=== PATIENT | female | born 1990 | race Two or more races ===

== ENCOUNTER 2024-05-28 22:47 | Outpatient (CLI) | payer OTHER ==
[~2024-05-28] VITALS: Ht 157.5 cm; Wt 70.8 kg
[2024-05-28 22:24] VITALS: BP 117/71
[2024-05-28] MEDS ORDERED: IRON236 MG PO (22:51)
[2024-05-28] MEDS ORDERED: CHILDREN'S ASPI81 MG PO (22:51)
[2024-05-28] MEDS ORDERED: PRENATAL TABLE1 EAC4 PO (22:52)
[2024-05-28] MEDS ORDERED: hydrOXYzine PAMOATE 25 MG CAPSULE PO PRN (23:00)
[2024-05-28] MEDS ORDERED: RINGERS SOLUTION,LACTATED 1,000 ML IV SCH (23:00)
[2024-05-28 23:47] LABS: HEMATOCRIT 33.5 % (36.0-45.00); HEMOGLOBIN 11.3 g/dL (12.0-15.00); MEAN CELL VOLUME 88.5 fL (80.00-100.00); MEAN CORPUSCULAR HEMOGLOBIN 29.8 pg (27.00-32.0); MEAN CORPUSCULAR HGB CONC 33.7 g/dl (32.0-36.0); PLATELET COUNT 149 K/uL (150-450); RED BLOOD COUNT 3.79 M/uL (4.00-6.00); RED CELL DISTRIBUTION WIDTH 13.9 % (11.5-14.5)
[2024-05-28 23:48] LABS: PH,URINE 6.5 (5.0-8.0); URINE APPEARANCE Clear; URINE BILIRRUBIN Negative (NEGATIVE); URINE BLOOD Negative; URINE COLOR Yellow; URINE GLUCOSE Negative (NEGATIVE); URINE KETONE Negative (NEGATIVE); URINE LEUKOCYTE Small; URINE NITRATE Negative; URINE PROTEIN Negative (NEGATIVE); URINE UROBILINOGEN 0.2 E.U./dl
[2024-05-28 23:52] LABS: URINE BACTERIA 2674.8 uL (0.0-1933); URINE EPITHELIAL CELLS 21.7 uL (0.0-38.8); URINE RBC 8.3 uL (0.0-20.8); URINE WBC 67.8 uL (0.0-23.2)
[2024-05-29] VITALS: BP 100/55
[2024-05-29 00:07] LABS: BILIRUBIN TOTAL 0.4 mg/dL (0.3-1.2); CALCIUM 9.8 mg/dL (8.5-10.1); CREATININE SERUM 0.52 mg/dL (0.55-1.02); GFR 135.8; GLOBULINA 3.7 G/DL (2.4-3.5); POTASSIUM 3.77 mEq/L (3.5-5.1); TOTAL PROTEIN 6.7 gm/dL (6.4-8.2)
[2024-05-29 05:05] VITALS: BP 92/55
[2024-05-29 06:19] VITALS: BP 95/64; O2SAT 98
[2024-05-29 13:10] VITALS: BP 111/70; O2SAT 98
[2024-05-29 15:18] VITALS: BP 94/62
== END 2024-05-29 16:41 | disposition home or self-care (01) ==
LOC: OBS/DEL 22:47
PROVIDERS: Obstetrics & Gynecology; ATTEND General Practice
DX: O47.03 False labor before 37 completed weeks of gestation, third trimester (principal); O23.43 Unspecified infection of urinary tract in pregnancy, third trimester; N39.0 Urinary tract infection, site not specified; Z3A.34 34 weeks gestation of pregnancy; O26.849 Uterine size-date discrepancy, unspecified trimester; O36.8199 Decreased fetal movements, unspecified trimester, other fetus

== ENCOUNTER 2024-06-27 14:00 | Inpatient (IN) | payer OTHER ==
[~2024-06-27] VITALS: Ht 157.5 cm; Wt 3.2 kg
[~2024-06-27 14:00] MED LIST: CHILDREN'S ASPI81 MG PO; IRON236 MG PO; PRENATAL TABLE1 EAC4 PO
[2024-07-04] MEDS ORDERED: MORPHINE SULFATE 4 MG/ML VIAL IV ONE ×2 (11:00→22:45)
[2024-07-04] MEDS ORDERED: OXYTOCIN 500 ML IV SCH (11:00)
[2024-07-04 11:20] VITALS: BP 115/77
[2024-07-04 12:20] VITALS: BP 116/83
[2024-07-04] MEDS ORDERED: FAMOTIDINE/PF 20 MG/2 ML VIAL IV SCH (14:02)
[2024-07-04] MEDS ORDERED: ONDANSETRON HCL 2 MG/ML VIAL IV PRN (14:15)
[2024-07-04] MEDS ORDERED: RINGERS SOLUTION,LACTATED 1,000 ML IV SCH ×2 (15:15→22:15)
[2024-07-04 15:56] VITALS: BP 105/70
[2024-07-04 19:59] VITALS: BP 119/70
[2024-07-04] MEDS ORDERED: ERYTHROMYCIN BASE OPHT 1GM EACH TUBE OP ONE (20:00)
[2024-07-04] MEDS ORDERED: OXYTOCIN 10 UNITS/ML VIAL IV ONE (20:00)
[2024-07-04] MEDS ORDERED: CEFAZOLIN SODIUM 1,000 MG VIAL IV ONE (20:00)
[2024-07-04] MEDS ORDERED: OXYTOCIN 1,000 ML IV SCH (22:15)
[2024-07-04] MEDS ORDERED: CHLORHEXIDINE GLUCONATE 120 ML BOTTLE TOP SCH (22:15)
[2024-07-04] MEDS ORDERED: MEPERIDINE HCL/PF 25 MG/ML VIAL IV PRN (22:15)
[2024-07-04] MEDS ORDERED: KETOROLAC TROMETHAMINE 30 MG VIAL IV SCH (22:15)
[2024-07-05 02:33] VITALS: BP 133/75
[2024-07-05 03:21] LABS: HEMATOCRIT 34.7 % (36.0-45.00); HEMOGLOBIN 11.7 g/dL (12.0-15.00); MEAN CELL VOLUME 87.3 fL (80.00-100.00); MEAN CORPUSCULAR HEMOGLOBIN 29.4 pg (27.00-32.0); MEAN CORPUSCULAR HGB CONC 33.7 g/dl (32.0-36.0); PLATELET COUNT 154 K/uL (150-450); RED BLOOD COUNT 3.97 M/uL (4.00-6.00); RED CELL DISTRIBUTION WIDTH 14.7 % (11.5-14.5)
[2024-07-05] MEDS ORDERED: OxyCODONE HCL/APAP UD (PERCOCET) PO PRN (08:00)
[2024-07-05 08:48] VITALS: BP 108/67
[2024-07-05] MEDS ORDERED: SIMETHICONE 125 MG CAPSULE PO SCH (09:00)
[2024-07-05] MEDS ORDERED: DOCUSATE SODIUM 100MG CAP PO SCH (09:00)
[2024-07-05] MEDS ORDERED: IBUprofen 800 MG TABLET PO PRN (13:00)
[2024-07-05 15:44] VITALS: BP 98/67
[2024-07-06 00:54] VITALS: BP 112/71
[2024-07-06 08:07] VITALS: BP 112/72
[2024-07-06 15:11] VITALS: BP 115/77
[2024-07-07 08:20] VITALS: BP 122/82
[2024-07-07] MEDS ORDERED: BISACODYL 10 MG/SUPP.RECT SUPP.RECT RECTAL NR (10:00)
== END 2024-07-07 16:19 | disposition home or self-care (01) | DRG 788 ==
LOC: OB/GYN 07-04 10:44 → LDR 07-04 10:44 → OB/GYN 07-04 16:44 → LDR 07-06 14:00 → OB/GYN 07-07 16:19
PROVIDERS: ADMIT General Practice; ATTEND General Practice
PROC: 4A1HXCZ Monitoring of Products of Conception, Cardiac Rate, External Approach (ICD-10-PCS; 2024-07-04)
PROC: 10D00Z1 Extraction of Products of Conception, Low, Open Approach (ICD-10-PCS; principal; 2024-07-04 19:45)
DX: O82 Encounter for cesarean delivery without indication (principal); Z3A.39 39 weeks gestation of pregnancy; Z37.0 Single live birth; Z20.822 Contact with and (suspected) exposure to COVID-19

== ENCOUNTER → 2024-06-30 09:12 | Outpatient (CLI) | payer OTHER | END | disposition home or self-care (01) | LOC: PRENATAL 09:12 | PROVIDERS: ATTEND Obstetrics & Gynecology Maternal & Fetal Medicine | DX: Z76.1 Encounter for health supervision and care of foundling (principal) ==

== ENCOUNTER 2024-07-04 02:14 | Outpatient (CLI) | payer OTHER ==
[2024-07-04 01:30] VITALS: BP 117/72
[2024-07-04] MEDS ORDERED: RINGERS SOLUTION,LACTATED 1,000 ML IV SCH (03:00)
[2024-07-04 04:09] VITALS: BP 130/68
[2024-07-04 06:21] VITALS: BP 120/56
[2024-07-04] MEDS ORDERED: MORPHINE SULFATE 4 MG/ML CARTRIDGE IV ONE (06:30)
[2024-07-04 07:22] VITALS: BP 115/77
== END 2024-07-04 10:43 | disposition still patient (30) ==
LOC: OBS/DEL 02:14
PROVIDERS: ATTEND General Practice
DX: O26.893 Other specified pregnancy related conditions, third trimester (principal)